=== PATIENT | female | born 1985 | race Hispanic/Latino ===

== ENCOUNTER 2019-12-28 09:22 | Day surgery (SDC) | payer MEDICAID ==
[~2019-12-28 09:22] MED LIST: SODIUM CHLORIDE 0.9% 1000 ML 1,000 ML IV SCH
[2019-12-28] MEDS ORDERED: propofoL 200 MG/20 ML VIAL IV ONE (11:15)
--- NOTE | 2019-12-28 11:34 | Anesthesia Consultation ---
Anesthesia Consult and Med Hx Date of service: 12/28/19 - Airway Anesthetic Teeth Evaluation: Good ROM Head & Neck: Adequate Mental/Hyoid Distance: Adequate Mallampati Class: Class II Intubation Access Assessment: Probably Good - Pulmonary Exam CTA: Yes - Cardiac Exam Cardiac Exam: RRR - Pre-Operative Health Status ASA Pre-Surgery Classification: ASA3 Proposed Anesthetic Plan: MAC - Pulmonary Hx Smoking: Yes (1PPD) Hx Respiratory Symptoms: No - Cardiovascular System Hx Hypertension: No Hx Heart Attack/AMI: No Hx Percutaneous Transluminal Coronary Angioplasty (PTCA): No - Central Nervous System Hx Seizures: Yes (last seizure 4-5yrs ago; no AEDs) CVA: No - Endocrine Hx Renal Disease: No Hx Liver Disease: No Hx Insulin Dependent Diabetes: No Hx Non-Insulin Dependent Diabetes: No Hx Thyroid Disease: No - Other Systems Hx Substance Use: Yes (hx meth use; sober x 3 yrs) Hx Obesity: Yes (BMI 33)
--- NOTE | 2019-12-28 11:34 | Anesthesia Day of Surgery ---
Anesthesia Day of Surgery - Day of Surgery Patient Examined: Yes Patient H&P Reviewed: Yes Patient is NPO: Yes
[2019-12-28] MEDS ORDERED: ETOMIDATE 20 MG/10 ML INJ IV ONE (11:46)
--- NOTE | 2019-12-28 11:55 | Procedure Note ---
Date of procedure: 12/28/19 Pre-op diagnosis: Dysphagia Post-op diagnosis: other (Esophageal ring (s/p Esophageal dilation)/Erosive Esophagitis/Eosinophilic Esophagitis/Gastritis/ Mild to Moderate Hiatal Hernia) Procedure: EGD with Biopsy and Esophageal Dilation with Fletcher dilators (38 Fr and 42 Fr) Anesthesia: MAC Surgeon: MISTY OLIVER Estimated blood loss: minimal Pathology: list Specimen disposition: to lab Condition: stable Disposition: same day (Treat with PPI. Avoid aspirin or NSAID for 5 days; o therwise resume home medication and follow up in 1 to 2 weeks. Soft diet for today.)
[2019-12-28 12:23] VITALS: BP 110/60
--- NOTE | 2019-12-28 12:38 | Operative Report ---
PROCEDURE: Esophagogastroduodenoscopy with biopsy and esophageal dilation. INDICATIONS: A 34-year-old female who has been complaining of dysphagia and GERD symptoms. EGD was done to assess for the problem. DESCRIPTION OF PROCEDURE: The procedure was done after getting informed consent with MAC anesthesia. Instrument was passed through the hypopharynx into the esophagus, which showed an esophageal ring. Biopsy was done from the distal esophagus to assess for the severity of the erosive esophagitis as well as from the mid esophagus to assess for possible eosinophilic esophagitis. The stomach did show a small hiatal hernia. The patient was sneezing a lot at this time, which made taking a biopsy little difficult. Biopsy was, however, done from the gastric antrum and the gastric body to rule out for H. pylori and atrophic gastritis. The pylorus was patent. The duodenum in the first and second portion appeared normal. At the end of the procedure, the EGD scope was withdrawn and the esophagus was dilated with a 38 and subsequently with a 42-Tajik Fletcher dilator that was passed with ease. ASSESSMENT: Dysphagia, esophageal ring, mild benign esophageal stenosis, mild to moderate distal erosive esophagitis, rule out eosinophilic esophagitis, gastritis, small hiatal hernia. PLAN: Asked the patient to stay on a soft diet for today. Avoid aspirin and aspirin-related products for the next 4-5 days. Otherwise, resume home medication. The patient will be placed on PPI, namely Protonix 40 mg once daily and asked to follow up in the office in 1-2 weeks' time. The procedure was done in the GI lab with assistance of the GI lab team, which included Yesenia CINTRON with Emeka kirk and the assistance of anesthesia. JOB# [id number] PABLO/MARLENE
--- NOTE | 2019-12-28 13:27 | Post Anesthesia Evaluation ---
- Post Anesthesia Evaluation Patient Participated: Yes Airway Patent: Yes Stable Respiratory Function: Yes Nausea/Vomiting: No Temp > 96.8F: Yes Pain Manageable: Yes Adequeate Hydration: Yes Anesthesia Complications: No
== END 2019-12-28 09:23 | disposition home or self-care (01) ==
LOC: GIO 09:22
DX: R13.10 Dysphagia, unspecified (principal); K22.2 Esophageal obstruction; K21.00 Gastro-esophageal reflux disease with esophagitis, without bleeding; E66.9 Obesity, unspecified; K29.50 Unspecified chronic gastritis without bleeding; K44.9 Diaphragmatic hernia without obstruction or gangrene; K29.40 Chronic atrophic gastritis without bleeding; F17.210 Nicotine dependence, cigarettes, uncomplicated; Z79.899 Other long term (current) drug therapy; Z98.890 Other specified postprocedural states; Z68.33 Body mass index [BMI] 33.0-33.9, adult
CPT/HCPCS: 43239; 43450; 88305; 88342; J2704; J7030